=== PATIENT | male | born 1950 | race Caucasian/White ===

== ENCOUNTER → 2021-05-20 | Outpatient (CLI) | payer OTHER | LOC: CT 12:17 | DX: D37.02 Neoplasm of uncertain behavior of tongue (principal) | CPT/HCPCS: 36415; 70490; 82565; 84520 ==

== ENCOUNTER → 2021-07-15 | Day surgery (SDC) | payer OTHER, MEDICARE ==
[~2021-07-15] MED LIST: ACETAMINOPHEN325 MG PO; ATORVASTATIN CA80 MG PO; B-121000 MCG PO; BION TEARS EYE1 EAC1 EYEBOTH; DONEPEZIL HCL5 MG PO; FLOMAX 0.4 MG0.4 MG PO; FUROSEMIDE20 MG PO; INSULIN GLARGINE SQ; LEVETIRACETAM500 MG PO; LEVOTHYROXINE50 MC1 PO; MAGNESIUM OXID420 MG PO; MELATONIN3 MG PO; METFORMIN HCL1000 MG PO; METOPROLOL TART50 MG PO; PRAZOSIN HCL2 MG PO; PROAIR DIGIHAL90 MCG INH; PROTONIX 40 MG40 M1 PO; QUETIAPINE FUM400 MG PO; SPIRIVA HANDIH18 MCG PO; SYMBICORT 160-1 INHA INH; TRAZODONE HCL100 MG PO; VENLAFAXINE HCL75 MG PO; VITAMIN D325 MCG PO; VOLTAREN ARTHRI20 GM TOP
== END | disposition home or self-care (01) ==
LOC: OR 05:53
DX: C02.9 Malignant neoplasm of tongue, unspecified (principal); I10 Essential (primary) hypertension; J44.9 Chronic obstructive pulmonary disease, unspecified; I25.10 Atherosclerotic heart disease of native coronary artery without angina pectoris; E11.9 Type 2 diabetes mellitus without complications; Z95.1 Presence of aortocoronary bypass graft; Z87.891 Personal history of nicotine dependence; Z88.0 Allergy status to penicillin; Z79.4 Long term (current) use of insulin; Z79.899 Other long term (current) drug therapy
CPT/HCPCS: 82962; J2704; J7030

== ENCOUNTER 2022-05-05 16:02 | Emergency (ER) | payer OTHER, MEDICARE ==
[2022-05-05 18:17] LABS: HEMOGLOBIN 12.7 gm/dl (14.0-17.5); RED BLOOD COUNT 4.14 M/UL (4.20-5.50); WHITE BLOOD COUNT 9.7 K/UL (4.5-11.0)
[2022-05-06] MEDS ORDERED: MACROBID 100 M100 MG PO (01:53)
[2022-05-06] MEDS ORDERED: LACTULOSE10 GM/15 M PO (01:53)
== END 2022-05-06 02:05 | disposition home or self-care (01) ==
LOC: ER1 16:02
PROVIDERS: Physician Assistant
DX: K59.00 Constipation, unspecified (principal); N39.0 Urinary tract infection, site not specified; R33.9 Retention of urine, unspecified; E11.9 Type 2 diabetes mellitus without complications
CPT/HCPCS: 80053; 81001; 85025; 96360; 99284; Q9967